=== PATIENT | male | born 1955 | race Caucasian/White ===

== ENCOUNTER 2019-01-21 02:49 | Inpatient (IN) | payer MEDICARE, OTHER ==
[2019-01-21 04:43] LABS: ADD MAN DIFF? NO
[2019-01-21 04:44] LABS: WHITE BLOOD COUNT 8.2 10^3/ul (4.8-10.8)
[2019-01-21 04:44] LABS: ABNORMAL IP MESSAGE 1; BASOPHILS % 0.4 % (0.0-2.0); EOSINOPHILS % 0.2 % (0.0-7.0); HEMATOCRIT 46.3 % (42.0-52.0); HEMOGLOBIN 13.9 g/dl (14.0-18.0); LYMPHOCYTES # 0.4 10^3/ul (0.8-2.9); LYMPHOCYTES % 5.4 % (15.0-51.0); MEAN CORPUSCULAR HEMOGLOBIN 33.3 pg (29.0-33.0); MEAN CORPUSCULAR VOLUME 110.8 fl (82.0-101.0); MEAN PLATELET VOLUME 9.2 fl (7.4-10.4); MONOCYTE # 0.4 10^3/ul (0.3-0.9); MONOCYTES % 4.9 % (0.0-11.0); NEUTROPHIL # 7.3 10^3/ul (1.6-7.5); NEUTROPHILS % 88.5 % (39.0-77.0); PLATELET COUNT 203 10^3/UL (140-415); POSITIVE DIFF @See below; RED BLOOD COUNT 4.18 10^6/ul (4.70-6.10); RED CELL DISTRIBUTION WIDTH 12.2 % (11.5-14.5)
[2019-01-21 04:59] LABS: ADD UMIC NO; UR ASCORBIC ACID NEGATIVE (NEGATIVE); UR BILIRUBIN (Dip) NEGATIVE (NEGATIVE); UR BLOOD (Dip) NEGATIVE (NEGATIVE); UR CLARITY CLEAR (CLEAR); UR COLOR YELLOW (YELLOW); UR GLUCOSE (Dip) NEGATIVE (NEGATIVE); UR KETONES (Dip) NEGATIVE (NEGATIVE); UR LEUKOCYTE ESTERASE (Dip) NEGATIVE Leu/ul (NEGATIVE); UR NITRITE (Dip) NEGATIVE (NEGATIVE); UR SPECIFIC GRAVITY (Dip) 1.018 (1.003-1.030); UR TOTAL PROTEIN (Dip) NEGATIVE (NEGATIVE); UR UROBILINOGEN (Dip) NEGATIVE (NEGATIVE)
[2019-01-21 05:03] LABS: INR 1.03; PROTIME 13.6 Sec (11.9-14.9); PT RATIO 1.1
[2019-01-21 05:04] LABS: PARTIAL THROMBOPLASTIN TIME 31.6 Sec (23.0-35.0)
[2019-01-21 05:04] LABS: AMMONIA < 9 umol/l (9-30)
[2019-01-21 05:07] LABS: ACETAMINOPHEN < 10.0 ug/ml (10.0-30.0); ALANINE AMINOTRANSFERASE 16 IU/L (13-69); ALBUMIN/GLOBULIN RATIO 1.11; ALKALINE PHOSPHATASE 208 IU/L (42-121); ANION GAP 10 (5-13); ASPARTATE AMINO TRANSFERASE 37 IU/L (15-46); BILIRUBIN,INDIRECT 0.4 mg/dl (0-1.1); BILIRUBIN,TOTAL 0.4 mg/dl (0.2-1.3); BLOOD UREA NITROGEN 9 mg/dl (7-20); CALCIUM 8.6 mg/dl (8.4-10.2); CARBON DIOXIDE 28 mmol/L (21-31); CHLORIDE 99 mmol/L (97-110); CREATININE 0.61 mg/dl (0.61-1.24); ETHANOL < 10.0 mg/dl (0-0); Estimated GFR > 60 mL/min (>60); GLUCOSE 182 mg/dl (70-220); POTASSIUM 4.6 mmol/L (3.5-5.1); SALICYLATE < 1.0 mg/dl (5.0-30.0); SODIUM 137 mmol/L (135-144); TOTAL PROTEIN 7.6 g/dl (6.1-8.1)
[2019-01-21 05:13] LABS: AMPHETAMINE/METHAMPHETAMINE Negative (NEGATIVE); BARBITURATES Negative (NEGATIVE); BENZODIAZEPINES Negative (NEGATIVE); CANNABINOIDS Negative (NEGATIVE); COCAINE Negative (NEGATIVE); OPIATES Negative (NEGATIVE)
[2019-01-21 05:15] LABS: TROPONIN-I < 0.012 ng/ml (0.000-0.120)
[2019-01-21] MEDS: LORAZEPAM 2 MG INJ IV ×3 (06:05→20:44)
[2019-01-21] MEDS ORDERED: ONDANSETRON 4 MG INJ IV (07:00)
[2019-01-21] MEDS ORDERED: ACETAMINOPHEN 325 MG TAB PO (07:00)
[2019-01-21] MEDS ORDERED: NACL 0.9% 3 ML SYG IV (07:00)
[2019-01-21 07:53] LABS: AMMONIA < 9 umol/l (9-30)
[2019-01-21 08:01] LABS: LACTIC ACID 2.3 mmol/L (0.5-2.0)
[2019-01-21] MEDS: PANTOPRAZOLE (EC) 40 MG TAB PO (09:00)
[2019-01-21] MEDS: DEXTROSE 5%-0.45% NACL 1,000 ML IV ×2 (09:11→18:23)
[2019-01-21] MEDS: HEPARIN 5,000 UNIT/1 ML VIAL SC ×2 (09:12→20:43)
[2019-01-21] MEDS: HALOPERIDOL 5 MG INJ IM ×2 (09:12→20:37)
[2019-01-21] MEDS: NICOTINE (21 MG/24 HR) PATCH TRANSDERM (09:16)
[2019-01-21] MEDS: hydrALAzine 20 MG INJ IV (09:28)
[2019-01-21] MEDS: LEVETIRACETAM 500 MG TAB PO ×2 (13:35→20:41)
[2019-01-21] MEDS: LEVOFLOXACIN 500 MG TAB PO (13:35)
[2019-01-21] MEDS: LORAZEPAM 1 MG TAB PO (16:03)
[2019-01-21] MEDS: ALBUTEROL/IPRATROPIUM (NEB) 3 ML AMP HHN (16:37)
[2019-01-22] MEDS: hydrALAzine 20 MG INJ IV (00:53)
[2019-01-22] MEDS: LABETALOL HCL 20MG INJ IV (02:49)
[2019-01-22] MEDS: DEXTROSE 5%-0.45% NACL 1,000 ML IV ×2 (05:52→15:00)
[2019-01-22 06:04] LABS: ADD MAN DIFF? NO
[2019-01-22 06:07] LABS: WHITE BLOOD COUNT 6.6 10^3/ul (4.8-10.8)
[2019-01-22 06:07] LABS: BASOPHILS % 0.3 % (0.0-2.0); EOSINOPHILS % 0.2 % (0.0-7.0); HEMATOCRIT 43.2 % (42.0-52.0); HEMOGLOBIN 14.5 g/dl (14.0-18.0); LYMPHOCYTES % 15.4 % (15.0-51.0); MEAN CORPUSCULAR HEMOGLOBIN 31.9 pg (29.0-33.0); MEAN CORPUSCULAR HGB CONC 33.6 g/dl (32.0-37.0); MEAN CORPUSCULAR VOLUME 94.9 fl (82.0-101.0); MEAN PLATELET VOLUME 9.4 fl (7.4-10.4); MONOCYTE # 0.6 10^3/ul (0.3-0.9); MONOCYTES % 8.4 % (0.0-11.0); NEUTROPHIL # 4.9 10^3/ul (1.6-7.5); NEUTROPHILS % 75.4 % (39.0-77.0); PLATELET COUNT 239 10^3/UL (140-415); RED BLOOD COUNT 4.55 10^6/ul (4.70-6.10); RED CELL DISTRIBUTION WIDTH 12.6 % (11.5-14.5)
[2019-01-22 06:40] LABS: ALANINE AMINOTRANSFERASE 19 IU/L (13-69); ALBUMIN 3.8 g/dl (3.3-4.9); ALKALINE PHOSPHATASE 215 IU/L (42-121); ANION GAP 10 (5-13); ASPARTATE AMINO TRANSFERASE 44 IU/L (15-46); BILIRUBIN,INDIRECT 0.5 mg/dl (0-1.1); BILIRUBIN,TOTAL 0.5 mg/dl (0.2-1.3); BLOOD UREA NITROGEN 6 mg/dl (7-20); CALCIUM 8.7 mg/dl (8.4-10.2); CARBON DIOXIDE 26 mmol/L (21-31); CHLORIDE 101 mmol/L (97-110); CREATININE 0.53 mg/dl (0.61-1.24); Estimated GFR > 60 mL/min (>60); GLUCOSE 120 mg/dl (70-220); MAGNESIUM 2.1 mg/dl (1.7-2.5); POTASSIUM 3.9 mmol/L (3.5-5.1); SODIUM 137 mmol/L (135-144); TOTAL PROTEIN 7.6 g/dl (6.1-8.1)
[2019-01-22] MEDS: LORAZEPAM 2 MG INJ IV ×3 (07:38→18:23)
[2019-01-22] MEDS: LEVOFLOXACIN 500 MG TAB PO (09:08)
[2019-01-22] MEDS: FOLIC ACID 1 MG TAB PO (09:09)
[2019-01-22] MEDS: LEVETIRACETAM 500 MG TAB PO ×2 (09:09→21:13)
[2019-01-22] MEDS: PANTOPRAZOLE (EC) 40 MG TAB PO (09:09)
[2019-01-22] MEDS: THIAMINE 100 MG TAB PO (09:09)
[2019-01-22] MEDS: HEPARIN 5,000 UNIT/1 ML VIAL SC ×2 (09:25→21:14)
[2019-01-22] MEDS: COLLAGENASE 5 GM (UD JAR) TOP (10:12)
[2019-01-22] MEDS: LORAZEPAM 1 MG TAB PO (15:23)
[2019-01-22] MEDS: ARIPIPRAZOLE 5 MG TAB PO (17:54)
[2019-01-22] MEDS: DIPHENHYDRAMINE 50 MG INJ IV (20:58)
[2019-01-22] MEDS: HALOPERIDOL 5 MG INJ IM (20:58)
[2019-01-22] MEDS: MIRTAZAPINE 15 MG TAB PO (21:12)
[2019-01-22] MEDS: RIVASTIGMINE 1.5 MG CAP PO (23:51)
[2019-01-22] MEDS: CARBAMAZEPINE 200 MG TAB PO (23:51)
[2019-01-23] MEDS: DEXTROSE 5%-0.45% NACL 1,000 ML IV ×3 (01:00→20:50)
[2019-01-23] MEDS: LORAZEPAM 2 MG INJ IV (01:11)
[2019-01-23] MEDS: ARIPIPRAZOLE 5 MG TAB PO (08:47)
[2019-01-23] MEDS: CARBAMAZEPINE 200 MG TAB PO ×2 (08:47→22:18)
[2019-01-23] MEDS: COLLAGENASE 5 GM (UD JAR) TOP (08:47)
[2019-01-23] MEDS: LORAZEPAM 1 MG TAB PO ×3 (08:47→20:50)
[2019-01-23] MEDS: LEVETIRACETAM 500 MG TAB PO ×2 (08:48→20:50)
[2019-01-23] MEDS: THIAMINE 100 MG TAB PO (08:48)
[2019-01-23] MEDS: LEVOFLOXACIN 500 MG TAB PO (08:48)
[2019-01-23] MEDS: PANTOPRAZOLE (EC) 40 MG TAB PO (08:48)
[2019-01-23] MEDS: RIVASTIGMINE 1.5 MG CAP PO ×2 (08:48→22:19)
[2019-01-23] MEDS: FOLIC ACID 1 MG TAB PO (08:48)
[2019-01-23] MEDS: HEPARIN 5,000 UNIT/1 ML VIAL SC ×2 (09:03→20:55)
[2019-01-23] MEDS: NICOTINE (21 MG/24 HR) PATCH TRANSDERM (14:22)
[2019-01-23] MEDS: HYDROCODONE/APAP (5/325) TAB NGT ×2 (14:22→22:18)
[2019-01-23] MEDS: MIRTAZAPINE 15 MG TAB PO (20:50)
[2019-01-24] MEDS: HYDROCODONE/APAP (5/325) TAB NGT ×3 (04:24→17:40)
[2019-01-24] MEDS: LORAZEPAM 1 MG TAB PO ×3 (05:20→22:14)
[2019-01-24 05:58] LABS: ADD MAN DIFF? NO
[2019-01-24 06:05] LABS: WHITE BLOOD COUNT 5.1 10^3/ul (4.8-10.8)
[2019-01-24 06:05] LABS: BASOPHILS % 0.4 % (0.0-2.0); EOSINOPHILS # 0.2 10^3/ul (0.0-0.5); EOSINOPHILS % 3.3 % (0.0-7.0); HEMATOCRIT 41.8 % (42.0-52.0); LYMPHOCYTES # 1.2 10^3/ul (0.8-2.9); MEAN CORPUSCULAR HEMOGLOBIN 32.3 pg (29.0-33.0); MEAN CORPUSCULAR HGB CONC 33.5 g/dl (32.0-37.0); MEAN CORPUSCULAR VOLUME 96.3 fl (82.0-101.0); MEAN PLATELET VOLUME 9.5 fl (7.4-10.4); MONOCYTE # 0.4 10^3/ul (0.3-0.9); MONOCYTES % 8.1 % (0.0-11.0); NEUTROPHIL # 3.3 10^3/ul (1.6-7.5); PLATELET COUNT 193 10^3/UL (140-415); RED BLOOD COUNT 4.34 10^6/ul (4.70-6.10); RED CELL DISTRIBUTION WIDTH 12.3 % (11.5-14.5)
[2019-01-24] MEDS: DEXTROSE 5%-0.45% NACL 1,000 ML IV (06:19)
[2019-01-24 06:36] LABS: ANION GAP 6 (5-13); BLOOD UREA NITROGEN 11 mg/dl (7-20); CALCIUM 8.7 mg/dl (8.4-10.2); CARBON DIOXIDE 25 mmol/L (21-31); CHLORIDE 102 mmol/L (97-110); CREATININE 0.51 mg/dl (0.61-1.24); Estimated GFR > 60 mL/min (>60); GLUCOSE 117 mg/dl (70-220); POTASSIUM 4.4 mmol/L (3.5-5.1); SODIUM 133 mmol/L (135-144)
[2019-01-24] MEDS: NICOTINE (21 MG/24 HR) PATCH TRANSDERM (09:00)
[2019-01-24] MEDS: COLLAGENASE 5 GM (UD JAR) TOP (09:00)
[2019-01-24] MEDS: ARIPIPRAZOLE 5 MG TAB PO (09:19)
[2019-01-24] MEDS: LEVOFLOXACIN 500 MG TAB PO (09:19)
[2019-01-24] MEDS: RIVASTIGMINE 1.5 MG CAP PO ×3 (09:19→23:08)
[2019-01-24] MEDS: FOLIC ACID 1 MG TAB PO (09:19)
[2019-01-24] MEDS: THIAMINE 100 MG TAB PO (09:19)
[2019-01-24] MEDS: LEVETIRACETAM 500 MG TAB PO ×3 (09:20→23:07)
[2019-01-24] MEDS: CARBAMAZEPINE 200 MG TAB PO ×3 (09:20→23:08)
[2019-01-24] MEDS: PANTOPRAZOLE (EC) 40 MG TAB PO (09:23)
[2019-01-24] MEDS: HEPARIN 5,000 UNIT/1 ML VIAL SC ×2 (09:28→21:22)
[2019-01-24] MEDS: LORAZEPAM 2 MG INJ IV ×2 (17:40→21:46)
[2019-01-24] MEDS: MIRTAZAPINE 15 MG TAB PO ×2 (21:00→23:08)
[2019-01-25] MEDS: LORAZEPAM 2 MG INJ IV ×2 (02:06→09:37)
[2019-01-25] MEDS: HALOPERIDOL 5 MG INJ IM (03:30)
[2019-01-25] MEDS: hydrALAzine 20 MG INJ IV (03:30)
[2019-01-25] MEDS: LEVOFLOXACIN 500 MG TAB PO (09:02)
[2019-01-25] MEDS: LEVETIRACETAM 500 MG TAB PO ×2 (09:02→20:27)
[2019-01-25] MEDS: RIVASTIGMINE 1.5 MG CAP PO ×2 (09:02→21:56)
[2019-01-25] MEDS: PANTOPRAZOLE (EC) 40 MG TAB PO (09:02)
[2019-01-25] MEDS: CARBAMAZEPINE 200 MG TAB PO ×2 (09:03→21:56)
[2019-01-25] MEDS: FOLIC ACID 1 MG TAB PO (09:03)
[2019-01-25] MEDS: THIAMINE 100 MG TAB PO (09:03)
[2019-01-25] MEDS: ARIPIPRAZOLE 5 MG TAB PO (09:03)
[2019-01-25 09:05] LABS: ANION GAP 11 (5-13); BLOOD UREA NITROGEN 10 mg/dl (7-20); CALCIUM 9.8 mg/dl (8.4-10.2); CARBON DIOXIDE 26 mmol/L (21-31); CHLORIDE 103 mmol/L (97-110); CREATININE 0.52 mg/dl (0.61-1.24); Estimated GFR > 60 mL/min (>60); GLUCOSE 112 mg/dl (70-220); POTASSIUM 4.1 mmol/L (3.5-5.1); SODIUM 140 mmol/L (135-144)
[2019-01-25 09:10] LABS: LACTIC ACID 1.2 mmol/L (0.5-2.0)
[2019-01-25] MEDS: HEPARIN 5,000 UNIT/1 ML VIAL SC ×2 (09:18→20:32)
[2019-01-25] MEDS: COLLAGENASE 5 GM (UD JAR) TOP (09:19)
[2019-01-25] MEDS: NICOTINE (21 MG/24 HR) PATCH TRANSDERM (09:20)
[2019-01-25] MEDS: HYDROCODONE/APAP (5/325) TAB NGT (17:40)
[2019-01-25] MEDS: MIRTAZAPINE 15 MG TAB PO (20:27)
[2019-01-25] MEDS: LORAZEPAM 1 MG TAB PO (20:27)
[2019-01-25] MEDS: ZOLPIDEM 5 MG TAB PO (22:13)
[2019-01-26] MEDS: HYDROCODONE/APAP (5/325) TAB NGT ×2 (02:19→09:30)
[2019-01-26] MEDS: LORAZEPAM 1 MG TAB PO (03:47)
[2019-01-26] MEDS: NICOTINE (21 MG/24 HR) PATCH TRANSDERM ×2 (09:00→09:20)
[2019-01-26] MEDS: ARIPIPRAZOLE 5 MG TAB PO (09:15)
[2019-01-26] MEDS: THIAMINE 100 MG TAB PO (09:16)
[2019-01-26] MEDS: RIVASTIGMINE 1.5 MG CAP PO (09:16)
[2019-01-26] MEDS: PANTOPRAZOLE (EC) 40 MG TAB PO (09:16)
[2019-01-26] MEDS: CARBAMAZEPINE 200 MG TAB PO (09:16)
[2019-01-26] MEDS: LEVETIRACETAM 500 MG TAB PO (09:17)
[2019-01-26] MEDS: LEVOFLOXACIN 500 MG TAB PO (09:17)
[2019-01-26] MEDS: FOLIC ACID 1 MG TAB PO (09:17)
[2019-01-26] MEDS: HEPARIN 5,000 UNIT/1 ML VIAL SC (09:18)
[2019-01-26] MEDS: COLLAGENASE 5 GM (UD JAR) TOP (09:18)
== END 2019-01-26 15:15 | disposition home or self-care (01) | DRG 56 ==
LOC: E/R 02:49 → 5EC 01-25 16:28 → 6WM 05:39
PROVIDERS: Internal Medicine
DX: G31.2 Degeneration of nervous system due to alcohol (principal); G92 Toxic encephalopathy; F33.3 Major depressive disorder, recurrent, severe with psychotic symptoms; F10.288 Alcohol dependence with other alcohol-induced disorder; T42.6X1A Poisoning by other antiepileptic and sedative-hypnotic drugs, accidental (unintentional), initial encounter; J20.9 Acute bronchitis, unspecified; I10 Essential (primary) hypertension; B18.2 Chronic viral hepatitis C; E86.0 Dehydration; G40.909 Epilepsy, unspecified, not intractable, without status epilepticus; Z72.0 Tobacco use; Y92.003 Bedroom of unspecified non-institutional (private) residence as the place of occurrence of the external cause
CPT/HCPCS: 70450; 70551; 71045; 80048; 80053; 80307; 81003; 82140; 83605; 83735; 84484; 85025; 85610; 85730; 87086; 87400; 92526; 92610; 93005; 94664; 97116; 97162; 97530; 99285-25; G0378